=== PATIENT | male | born 1970 | race Hispanic/Latino ===

== ENCOUNTER 2019-11-13 17:47 | Inpatient (IN) | payer SELFPAY ==
--- NOTE | 2019-11-13 23:27 | ER ---
Nurse's Notes [facility] Name: Jersey Cunningham Age: 49 yrs Sex: Male : 1970 Arrival Date: 11/13/2019 Time: 17:58 Bed 23 Private MD: Diagnosis: SARS-associated coronavirus as the cause of diseases classified elsewhere;Dyspnea;Pneumonia, unspecified organism-bilateral multifocal Presentation: 11/12 18:31 Chief complaint: Patient states: shortness of breath and cough x 2 weeks. Pt was told ss he was COVID + yesterday. Coronavirus screen: Patient reports a cough. Patient reports shortness of breath or difficulty breathing. Patient denies measured and/or subjective temperature greater than 100.4F prior to today's visit. Ebola Screen: Patient denies exposure to infectious person. Patient denies travel to an Ebola-affected area in the 21 days before illness onset. Initial Sepsis Screen: Does the patient meet any 2 criteria? No. Patient's initial sepsis screen is negative. Does the patient have a suspected source of infection? No. Patient's initial sepsis screen is negative. Risk Assessment: Do you want to hurt yourself or someone else? Patient reports no desire to harm self or others. Onset of symptoms was October 2019. 18:31 Method Of Arrival: Wheelchair ss 18:31 Acuity: SANKET 3 ss Historical: - Allergies: 18:33 No Known Allergies; ss - PMHx: 18:33 Hypertension; ss - PSHx: 18:33 None; ss - Immunization history:: Adult Immunizations up to date. - Social history:: Smoking status: Patient denies any tobacco usage or history of. Screenin/09 00:35 Abuse screen: Denies threats or abuse. Denies injuries from another. Nutritional sg screening: No deficits noted. Tuberculosis screening: No symptoms or risk factors identified. Never had TB. Fall Risk None identified. Assessment: 11/12 22:12 Reassessment: Patient appears in no apparent distress at this time. pt continues to sg wait for a bed assignment at this time from the lobby, pt family remains at side of wheelchair, updated on approx wait time, Charge Nurse notified pt continues to wait for a bed, pt in a mask at this time. Vital Signs: 18:31 BP 106 / 75; Pulse 85; Resp 18; Temp 97.3(TE); Pulse Ox 95% on R/A; Weight 58.97 kg; 11/13 02:00 BP 108 / 70; Pulse 88; Resp 18; Temp 97.8; Pulse Ox 98% on R/A; sg ED Course: 11/12 17:58 Patient arrived in ED. fj1 18:32 Triage completed. 18:33 Arm band placed on left wrist. 22:34 Gabriel Morin MD is Attending Physician. [facility] 22:41 Farhat Rebolledo, RN is Primary Nurse. 23:20 Jake Godoy is Hospitalizing Provider. [facility] 11/13 00:30 No provider procedures requiring assistance completed. Initial lab(s) drawn, by nv, sg sent to lab. Inserted saline lock: 20 gauge in right antecubital area, using aseptic technique. Blood collected. Administered Medications: 11/12 23:23 Not Given (Duplicate Order): Lovenox 40 mg Sub-Q once [facility] 11/13 00:40 Drug: Decadron - Dexamethasone 10 mg Route: IVP; Site: right antecubital; sg 00:40 Drug: Albuterol HFA Inhaler 4 puffs Route: Inhalation; sg 00:40 Drug: Rocephin 1 grams Route: IV; Rate: per protocol; Site: right antecubital; sg 00:40 Drug: Lovenox 60 mg Route: Sub-Q; Site: right lower abdomen; sg 00:48 Drug: Zithromax 500 mg Route: IVPB; Infused Over: 1 hrs; Site: right antecubital; sg Outcome: 11/12 23:22 Decision to Hospitalize by Provider. [facility] 11/13 02:08 Admitted to Med/surg accompanied by [facility], via wheelchair, room 419, with chart, Report sg called to Flora AGUILAR Condition: stable Instructed on the need for admit, safety practices, Demonstrated understanding of instructions. 02:47 Patient left the ED. ar5 Signatures: Farhat Rebolledo, RN RN Gabriel Morin MD MD cha Smirch, Shelby, RN RN Katia Lopez ar5 Cortez Galaviz fj1
--- NOTE | 2019-11-13 23:27 | EDPHYS ---
Physician Documentation [facility] Name: Jersey Cunningham Age: 49 yrs Sex: Male : 1970 Arrival Date: 11/13/2019 Time: 17:58 Bed 23 Private MD: ED Physician Gabriel Morin HPI: 11/12 22:45 This 49 yrs old Male presents to ER via Wheelchair with complaints of ted Breathing Difficulty, COVID +. 22:45 The patient has shortness of breath at rest, with light activity. Onset: The ted symptoms/episode began/occurred 3 day(s) ago. Duration: The symptoms are continuous, and are steadily getting worse. The patient's shortness of breath is aggravated by light activity, is alleviated by rest, sitting up, application of supplemental oxygen. Associated signs and symptoms: Pertinent positives: non-productive cough, dizziness. Severity of symptoms: At their worst the symptoms were moderate in the emergency department the symptoms are unchanged. The patient has not experienced similar symptoms in the past. Historical: - Allergies: 18:33 No Known Allergies; ss - PMHx: 18:33 Hypertension; ss - PSHx: 18:33 None; ss - Immunization history:: Adult Immunizations up to date. - Social history:: Smoking status: Patient denies any tobacco usage or history of. ROS: 22:47 Constitutional: Negative for fever, chills, and weight loss, Eyes: Negative for injury, ted pain, redness, and discharge, ENT: Negative for injury, pain, and discharge, Neck: Negative for injury, pain, and swelling, Cardiovascular: Negative for chest pain, palpitations, and edema, Abdomen/GI: Negative for abdominal pain, nausea, vomiting, diarrhea, and constipation, Back: Negative for injury and pain, : Negative for injury, bleeding, discharge, and swelling, MS/Extremity: Negative for injury and deformity, Skin: Negative for injury, rash, and discoloration, Neuro: Negative for headache, weakness, numbness, tingling, and seizure, Psych: Negative for depression, anxiety, suicide ideation, homicidal ideation, and hallucinations, Allergy/Immunology: Negative for hives, rash, and allergies, Endocrine: Negative for neck swelling, polydipsia, polyuria, polyphagia, and marked weight changes, Hematologic/Lymphatic: Negative for swollen nodes, abnormal bleeding, and unusual bruising. 22:47 Respiratory: Positive for cough, shortness of breath, at rest. 22:47 MS/extremity: Negative for acute changes, swelling, tenderness. Exam: 22:47 Constitutional: This is a well developed, well nourished patient who is awake, alert, ted and in no acute distress. Head/Face: Normocephalic, atraumatic. Eyes: Pupils equal round and reactive to light, extra-ocular motions intact. Lids and lashes normal. Conjunctiva and sclera are non-icteric and not injected. Cornea within normal limits. Periorbital areas with no swelling, redness, or edema. ENT: Nares patent. No nasal discharge, no septal abnormalities noted. Tympanic membranes are normal and external auditory canals are clear. Oropharynx with no redness, swelling, or masses, exudates, or evidence of obstruction, uvula midline. Mucous membranes moist. Neck: Trachea midline, no thyromegaly or masses palpated, and no cervical lymphadenopathy. Supple, full range of motion without nuchal rigidity, or vertebral point tenderness. No Meningismus. Chest/axilla: Normal chest wall appearance and motion. Nontender with no deformity. No lesions are appreciated. Cardiovascular: Regular rate and rhythm with a normal S1 and S2. No gallops, murmurs, or rubs. Normal PMI, no JVD. No pulse deficits. Abdomen/GI: Soft, non-tender, with normal bowel sounds. No distension or tympany. No guarding or rebound. No evidence of tenderness throughout. Back: No spinal tenderness. No costovertebral tenderness. Full range of motion. Male : Normal genitalia with no discharge or lesions. Skin: Warm, dry with normal turgor. Normal color with no rashes, no lesions, and no evidence of cellulitis. MS/ Extremity: Pulses equal, no cyanosis. Neurovascular intact. Full, normal range of motion. Neuro: Awake and alert, GCS 15, oriented to person, place, time, and situation. Cranial nerves II-XII grossly intact. Motor strength 5/5 in all extremities. Sensory grossly intact. Cerebellar exam normal. Normal gait. Psych: Awake, alert, with orientation to person, place and time. Behavior, mood, and affect are within normal limits. 22:47 Respiratory: mild respiratory distress is noted, moderate respiratory distress is noted, Respirations: labored breathing, that is mild, that is moderate, Breath sounds: decreased breath sounds, rhonchi, + upper airway congestion. 11/13 01:28 ECG was reviewed by the Attending Physician. [facility] Vital Signs: 11/12 18:31 BP 106 / 75; Pulse 85; Resp 18; Temp 97.3(TE); Pulse Ox 95% on R/A; Weight 58.97 kg; ss 11/13 02:00 BP 108 / 70; Pulse 88; Resp 18; Temp 97.8; Pulse Ox 98% on R/A; sg MDM: 11/12 22:34 Patient medically screened. [facility] 22:48 Data reviewed: vital signs, nurses notes, lab test result(s), EKG, radiologic studies, [facility] plain films. 11/12 22:44 Order name: Basic Metabolic Panel [facility] 11/12 22:44 Order name: CBC with Diff [facility] 11/12 22:44 Order name: LFT's [facility] 11/12 22:44 Order name: Magnesium [facility] 11/12 22:44 Order name: NT PRO-BNP [facility] 11/12 22:44 Order name: Troponin (emerg Dept Use Only) [facility] 11/12 22:44 Order name: XRAY Chest (1 view) [facility] 11/13 01:12 Order name: CBC with Automated Diff; Complete Time: 01: EDMO 11/13 01:24 Order name: Basic Metabolic Panel; Complete Time: : EDMO 11/13 01:24 Order name: Liver (Hepatic) Function; Complete Time: : EDMO 11/13 01:24 Order name: Troponin (Emerg Dept Use Only); Complete Time: 01: EDMO 11/13 01:24 Order name: NT PRO-BNP; Complete Time: 01: EDMO 11/13 01:24 Order name: Magnesium; Complete Time: 01: [facility] [place] 11/12 22:44 Order name: EKG; Complete Time: 21:29 [facility] 11/12 22:44 Order name: Cardiac monitoring; Complete Time: 00:49 [facility] 11/12 22:44 Order name: EKG - Nurse/Tech; Complete Time: 01:39 [facility] 11/12 22:44 Order name: IV Saline Lock; Complete Time: 00:49 [facility] 11/12 22:44 Order name: Labs collected and sent; Complete Time: 00:49 [facility] 11/12 22:44 Order name: O2 Per Protocol; Complete Time: 00:49 [facility] 11/12 22:44 Order name: O2 Sat Monitoring; Complete Time: 00:49 [facility] EC/09 01:28 Rate is 88 beats/min. Rhythm is regular. QRS Samaria is Normal. MO interval is normal. QRS ted interval is normal. QT interval is normal. No Q waves. T waves are Normal. No ST changes noted. Clinical impression: Normal ECG and No evidence of ischemia. Interpreted by me. Reviewed by me. Administered Medications: 11/12 23:23 Not Given (Duplicate Order): Lovenox 40 mg Sub-Q once [facility] 11/13 00:40 Drug: Decadron - Dexamethasone 10 mg Route: IVP; Site: right antecubital; sg 00:40 Drug: Albuterol HFA Inhaler 4 puffs Route: Inhalation; sg 00:40 Drug: Rocephin 1 grams Route: IV; Rate: per protocol; Site: right antecubital; sg 00:40 Drug: Lovenox 60 mg Route: Sub-Q; Site: right lower abdomen; sg 00:48 Drug: Zithromax 500 mg Route: IVPB; Infused Over: 1 hrs; Site: right antecubital; sg Disposition: 11/13/19 23:22 Hospitalization ordered by Jake Godoy for Inpatient Admission. Preliminary diagnosis are SARS-associated coronavirus as the cause of diseases classified elsewhere, Dyspnea, Pneumonia, unspecified organism - bilateral multifocal. - Bed requested for Telemetry/MedSurg (Inpatient). - Status is Inpatient Admission. ar5 - Condition is Fair. - Problem is new. - Symptoms have improved. Signatures: Dispatcher [employer] EDFarhat Verma RN RN sg Anderson, Corey, MD MD cha Smirch, Shelby, RN RN Jael Rodriguez RN RN tl1 Katia Drummond ar5 Corrections: (The following items were deleted from the chart) 01:43 11/12 23:22 Hospitalization Ordered by Jake Godoy for Inpatient Admission. tl1 Preliminary diagnosis is SARS-associated coronavirus as the cause of diseases classified elsewhere; Dyspnea; Pneumonia, unspecified organism - bilateral multifocal. Bed requested for Telemetry/MedSurg (Inpatient). Status is Inpatient Admission. Condition is Fair. Problem is new. Symptoms have improved. [facility] 11/13 02:47 01:43 11/13/2019 23:22 Hospitalization Ordered by Jake Godoy for Inpatient ar5 Admission. Preliminary diagnosis is SARS-associated coronavirus as the cause of diseases classified elsewhere; Dyspnea; Pneumonia, unspecified organism - bilateral multifocal. Bed requested for Telemetry/MedSurg (Inpatient). Status is Inpatient Admission. Condition is Fair. Problem is new. Symptoms have improved. tl1
[2019-11-14] MEDS ORDERED: dexAMETHasone 10 MG/ML VIAL ONE (00:06)
[2019-11-14] MEDS ORDERED: NA CHLORIDE 0.9% 250 ML ONE (00:07)
[2019-11-14] MEDS ORDERED: ENOXAPARIN 60 MG/0.6 ML SQ ONE (00:07)
[2019-11-14] MEDS ORDERED: AZITHROMYCIN 500 MG INJ IVPB ONE (00:07)
[2019-11-14] MEDS ORDERED: CEFTRIAXONE/SWI 1gm 1 GM/10 ML SYR ONE (00:07)
[2019-11-14] MEDS ORDERED: ALBUTEROL INHALER 60 PUFF/8 GM IH ONE (00:07)
--- NOTE | 2019-11-14 00:53 | P.HP ---
Certification for Inpatient Patient admitted to: Observation With expected LOS: <2 Midnights Practitioner: I am a practitioner with admitting privileges, knowledge of patient current condition, hospital course, and medical plan of care. Services: Services provided to patient in accordance with Admission requirements found in Title 42 Section 412.3 of the Code of Federal Regulations Patient History Date of Service: 11/14/19 Reason for admission: Cough and shortness of breath History of Present Illness: 49-year-old Syriac-speaking gentleman with a history of hypertension presented to the ED with a complaint of cough and shortness of breath of 2 weeks duration duration. Patient tested positive for COVID 19 yesterday. He reports shortness of breath both at rest and with exertion. He denied any fever. Chest x-ray in the ED demonstrated bilateral infiltrate. Patient is not hypoxic on room air at rest. Blood work is pending. Patient is placed under observation for further management. Allergies No Known Allergies Allergy (Unverified 11/13/19 22:52) - Past Medical/Surgical History -: Hypertension - Family History Family History: Reviewed- Non-Contributory - Social History Smoking Status: Never smoker Alcohol use: No CD- Drugs: No Place of Residence: Home Review of Systems Other: Except as documented, all other systems reviewed and negative. Physical Examination - Physical Exam General: Alert, In no apparent distress, Oriented x3 HEENT: Mucous membr. moist/pink, Sclerae nonicteric Neck: Supple, JVD not distended Respiratory: Clear to auscultation bilaterally, Normal air movement Cardiovascular: No edema, Normal pulses, Regular rate/rhythm Capillary refill: <2 Seconds Gastrointestinal: Normal bowel sounds, Soft and benign, No tenderness Musculoskeletal: No swelling, No erythema Integumentary: No rashes Neurological: Normal strength at 5/5 x4 extr, Cranial nerves 3-12 intact Assessment and Plan - Problems (Diagnosis) (1) COVID-19 Current Visit: Yes Status: Acute (2) Pneumonia due to COVID-19 virus Current Visit: Yes Status: Acute - Plan Place patient under observation. Start Zithromax and IV dexamethasone. Supplemental oxygen as needed. Consult pulmonary. Continue home antihypertensives. Evaluate for home oxygen qualification. - Advance Directives Does patient have a Living Will: No Does patient have a Durable POA for Healthcare: No
[2019-11-14 01:05] LABS: Absolute Lymphocytes (CBC) 0.5 K/uL (0.7-4.9); Basophils % 0.7 % (0-1.3); Hematocrit 42.8 % (39.6-49.0); MPV 8.3 fL (7.6-11.3); RBC Red Blood Cell Count 5.01 M/uL (4.33-5.43)
[2019-11-14 01:24] LABS: ALT/SGPT 65 U/L (12-78); AST/SGOT 26 U/L (15-37); Albumin 2.7 g/dL (3.4-5.0); Alkaline Phosphatase 85 U/L (45-117); BUN Blood Urea Nitrogen 28 mg/dL (7-18); Bicarbonate 22 mmol/L (21-32); Bilirubin Direct < 0.1 mg/dL (0-0.2); Bilirubin Total 0.3 mg/dL (0.2-1.0); Glucose Level 134 mg/dL (74-106); Magnesium 2.2 mg/dL (1.8-2.4); NT PRO-BNP 25 pg/mL (<125); Potassium 4.2 mmol/L (3.5-5.1); Protein, Total 7.3 g/dL (6.4-8.2); Sodium Level 139 mmol/L (136-145); Troponin (Emerg Dept Use Only) < 0.02 ng/mL (0.0-0.045)
[2019-11-14] MEDS ORDERED: ACETAMINOPHEN 500 MG TAB PO PRN (03:24)
[2019-11-14] MEDS ORDERED: NA CHLORIDE 0.9% 1,000 ML IV SCH (03:24)
[2019-11-14] MEDS: dexAMETHasone 10 MG/ML VIAL IV SCH ×2 (03:24→08:40)
[2019-11-14 05:25] VITALS: O2SAT 93
--- NOTE | 2019-11-14 07:23 | RAD REPORT ---
EXAM DESCRIPTION: Rubio Single View11/14/2019 12:24 am CLINICAL HISTORY: Shortness of breath COMPARISON: none FINDINGS: Mild to moderate bilateral pulmonary opacities The heart is normal size IMPRESSION: [id number] bilateral pulmonary opacities may indicate a viral pneumonia
[2019-11-14] MEDS ORDERED: ENOXAPARIN 40 MG/0.4 ML SQ SCH (09:00)
[2019-11-14] MEDS ORDERED: AZITHROMYCIN IV 500 MG in NA CHLORIDE 0.9% 250 ML IVPB SCH (09:00)
--- NOTE | 2019-11-14 14:43 | P.DS ---
Admission Date: 11/14/19 Discharge Date: 11/14/19 Primary Care Provider: none Disposition: ROUTINE DISCHARGE Discharge Condition: GOOD Reason for Admission: Cough and shortness of breath Consultations: Pulmonology-Dr. Park Procedures: Chest x-ray: COMPARISON: none FINDINGS: Mild to moderate bilateral pulmonary opacities The heart is normal size IMPRESSION: [id number] bilateral pulmonary opacities may indicate a viral pneumonia Medical problem list: Cough, shortness of breath secondary to bilateral pneumonia with positive COVID 19 Brief History of Present Illness: 49-year-old male presented to the emergency room with increasing shortness of breath and fatigue. Patient has had symptoms for 2 weeks. Patient reported testing positive for COVID yesterday. Patient was evaluated in the emergency room. Patient admitted for further evaluation. Hospital Course: Patient presented with cough, shortness of breath. Patient tested positive for COVID prior to ER evaluation. Chest x-ray showed bilateral pneumonia. Lab unremarkable. Patient was not hypoxic. Patient was admitted for observation. Patient was given IV Decadron. During the course of his stay patient has done well. Patient remains without hypoxia. No significant respiratory distress noted. Case discussed at length with pulmonology. No need for further intervention. At discharge patient will continue with prednisone 10 mg 1 pill twice daily for 7 days. Patient to monitor for further worsening symptoms. Infection control will follow up on the patient through the health department. Recommend CDC guidelines including social distancing, mask, and hand washing. Patient will need to quarantine for at least 14 days. He understands instructions. Recommend follow up with his PCP in 1-2 weeks to follow up this hospitalization. Vital Signs/Physical Exam: Temp Pulse Resp BP Pulse Ox 98 F 87 18 101/66 93 11/14/19 08:00 11/14/19 08:00 11/14/19 08:00 11/14/19 08:00 11/14/19 08:00 General: Alert, In no apparent distress, Oriented x3, Oriented x1 HEENT: Atraumatic Neck: Supple Respiratory: Other (Patient breathing appropriately. No distress noted) Cardiovascular: Normal pulses Neurological: Normal speech, Normal strength at 5/5 x4 extr, Normal tone, Normal affect Laboratory Data at Discharge: WBC 7.1 K/uL (4.3-10.9) 11/14/19 00:30 Hgb 14.4 g/dL (13.6-17.9) 11/14/19 00:30 Hct 42.8 % (39.6-49.0) 11/14/19 00:30 Plt Count 403 K/uL (152-406) 11/14/19 00:30 Sodium 139 mmol/L (136-145) 11/14/19 00:30 Potassium 4.2 mmol/L (3.5-5.1) 11/14/19 00:30 BUN 28 mg/dL (7-18) H 11/14/19 00:30 Creatinine 0.77 mg/dL (0.55-1.3) 11/14/19 00:30 Glucose 134 mg/dL (74-106) H 11/14/19 00:30 Magnesium 2.2 mg/dL (1.8-2.4) 11/14/19 00:30 Total Bilirubin 0.3 mg/dL (0.2-1.0) 11/14/19 00:30 AST 26 U/L (15-37) 11/14/19 00:30 ALT 65 U/L (12-78) 11/14/19 00:30 Alkaline Phosphatase 85 U/L (45-117) 11/14/19 00:30 Home Medications: predniSONE [Deltasone*] 10 mg PO BID #14 tab 11/14/19 New Medications: predniSONE [Deltasone*] 10 mg PO BID #14 tab Patient Discharge Instructions: 1. Recommend follow up with PCP in 1 week to follow up this hospitalization. 2. Patient presented with cough, shortness of breath. Patient tested positive for COVID prior to ER evaluation. Chest x-ray showed bilateral pneumonia. Patient was not hypoxic. Patient was admitted for observation. During the course of his stay patient has done well. Patient remains without hypoxia. No significant respiratory distress noted. Case discussed at length with pulmonology. No need for further intervention. At discharge patient will continue with prednisone 10 mg 1 pill twice daily for 7 days. Patient to monitor for further worsening symptoms. Infection control will follow up on the patient through the health department. Recommend CDC guidelines including social distancing, mask, and hand washing. Patient will need to quarantine for at least 14 days. He understands instructions. Recommend follow up with his PCP in 1-2 weeks to follow up this hospitalization. Diet: Regular Activity: Ad blank Time spent managing pt's care (in minutes): 55
[2019-11-14 16:40] VITALS: BP 126/81; TEMP 98.7
== END 2019-11-14 17:05 | disposition home or self-care (01) | DRG 177 ==
LOC: ER 17:47 → ERHOLD 11-14 01:23 → 4TH 11-14 02:08 → OBSVTOIN 11-14 08:12
PROVIDERS: ADMIT Internal Medicine; ATTEND Internal Medicine
DX: U07.1 COVID-19 (principal); J12.89 Other viral pneumonia; I10 Essential (primary) hypertension; Z79.52 Long term (current) use of systemic steroids
CPT/HCPCS: 36415; 71045; 80048; 80076; 83735; 83880; 84484; 85025; 96372; 96374; 96375; 99285; G0378; J0456; J1100; J1650; J7030; J7050